=== PATIENT | female | born 1965 | race African-American/Black ===

== ENCOUNTER 2017-03-30 23:26 | Emergency (ER) | payer MEDICAID ==
[~2017-03-30] VITALS: Ht 160 cm; Wt 87.5 kg
[2017-03-30] MEDS ORDERED: IBUPROFEN 600 MG TAB PO ONE (23:45)
[2017-03-31 00:11] LABS: Basophils # (auto) 0 uL; Basophils % (auto) 0.4 % (0.0-2.0); DEFINITIVE SEE PRINTOUT; Eosinophils # (auto) 0 uL; Eosinophils % (auto) 0.5 % (0.0-7.0); Hematocrit 39.4 % (36.0-46.0); Hemoglobin 12.6 g/dL (12.2-16.2); Lymphocytes # (auto) 1.8 uL; Lymphocytes % (auto) 27.9 % (10.0-50.0); Mean Corpuscular Hemoglobin 26.1 pg (28.0-32.0); Mean Corpuscular Hgb Conc. 31.9 g/dL (32.0-36.0); Mean Corpuscular Volume 81.8 fL (80.0-100.0); Mean Platelet Volume 10.1 fL (7.4-10.4); Monocytes # (auto) 0.7 uL; Monocytes % (auto) 10.8 % (0.0-12.0); Neutrophils # (auto) 3.8 uL; Neutrophils % (auto) 60.4 % (37.0-80.0); Platelet Count (auto) 257 10^3/uL (140-450); Red Cell Distribution Width 14.5 % (11.6-16.0); White Blood Cell 6.3 10^3/uL (4.4-10.8)
[2017-03-31 00:12] LABS: Urine Bilirubin Negative (Negative); Urine Blood TRACE /uL (Negative); Urine Color Yellow (Yellow); Urine Glucose Normal (Normal); Urine Ketone Negative (Negative); Urine Mucus FEW (None Seen); Urine Nitrite Negative (Negative); Urine RBC 1 /hpf (0 - 4); Urine Squamous Epithelial Cell FEW /hpf (<5); Urine Urobilinogen Normal (Negative)
[2017-03-31 00:14] LABS: Albumin 3.3 g/dL (3.4-5.0); Amylase 45 U/L (25-115); Anion Gap 9 (5-15); Aspartate Aminotransferase 21 U/L (15-37); BUN/Creatinine Ratio 10.2; Blood Urea Nitrogen 11 mg/dL (7-18); Calcium 8.4 mg/dL (8.5-10.1); Carbon Dioxide 23 mmol/L (21-32); Chloride 104 mmol/L (98-107); GFR African American 68 mL/min; GFR Non-African American 56 mL/min; Glucose 110 mg/dL (74-106); Potassium 3.9 mmol/L (3.5-5.1); Sodium 136 mmol/L (136-145)
[2017-03-31 00:19] LABS: Alkaline Phosphatase 89 U/L (45-117); Bilirubin, Total 0.4 mg/dL (0.2-1.0); Total Protein 7.3 g/dL (6.4-8.2)
[2017-03-31 01:06] LABS: INR 1.12 (0.9-1.15); Partial Thromboplastin Time 29.7 sec (22.64-33.71); Prothrombin Time 12.2 sec (9.37-12.3)
[2017-03-31 01:27] VITALS: BP 107/55
[2017-03-31] MEDS ORDERED: diphenhdrAMINE HCL 50 MG/1 ML VL IV ONE (01:45)
[2017-03-31] MEDS ORDERED: SODIUM CHLORIDE 0.9% 1,000 ML IV ONE (01:45)
[2017-03-31] MEDS ORDERED: methylPREDNISolone SOD SUCC 125 MG/2 ML VL IV ONE (01:45)
[2017-03-31] MEDS ORDERED: EPINEPHrine HCL 1 MG/1 ML AMP SC ONE (01:45)
[2017-03-31] MEDS ORDERED: FAMOTIDINE (10MG/ML) 2ML VL IV ONE (02:45)
== END 2017-03-31 04:29 | disposition home or self-care (01) ==
LOC: ER 23:26
DX: T78.40XA Allergy, unspecified, initial encounter (principal); T78.3XXA Angioneurotic edema, initial encounter; J45.909 Unspecified asthma, uncomplicated; Y92.89 Other specified places as the place of occurrence of the external cause
CPT/HCPCS: 36415; 71010; 80053; 80320; 81001; 81025; 82150; 83605; 83690; 83735; 84484; 85025; 85610; 85730; 93005; 96361; 96372; 96374; 96375; 99285; J0171; J1200; J2930; J3490; J7030

== ENCOUNTER 2017-06-28 15:17 | Emergency (ER) | payer MEDICAID ==
[~2017-06-28] VITALS: Ht 160 cm; Wt 96.2 kg
[2017-06-28 16:12] VITALS: BP 137/46
[2017-06-28] MEDS ORDERED: methylPREDNISolone SOD SUCC 125 MG/2 ML VL IM ONE (16:30)
[2017-06-28] MEDS ORDERED: EPINEPHrine HCL 1 MG/1 ML AMP SC ONE (16:30)
[2017-06-28] MEDS ORDERED: diphenhdrAMINE HCL 50 MG/1 ML VL IM ONE (16:30)
== END 2017-06-28 17:33 | disposition home or self-care (01) ==
LOC: ER 15:17
DX: L50.9 Urticaria, unspecified (principal); J45.909 Unspecified asthma, uncomplicated; Z88.6 Allergy status to analgesic agent
CPT/HCPCS: 96372; 99284; J0171; J1200; J2930

== ENCOUNTER 2018-08-11 14:20 | Emergency (ER) | payer MEDICAID ==
[~2018-08-11] VITALS: Ht 160 cm; Wt 97.5 kg
[2018-08-11 14:46] LABS: Basophils # (auto) 0 uL; Basophils % (auto) 0.5 % (0.0-2.0); Eosinophils # (auto) 0.2 uL; Eosinophils % (auto) 2.9 % (0.0-7.0); Hematocrit 39.4 % (36.0-46.0); Hemoglobin 12.6 g/dL (12.2-16.2); Lymphocytes # (auto) 2.1 uL; Lymphocytes % (auto) 39.8 % (10.0-50.0); Mean Corpuscular Hemoglobin 27.4 pg (28.0-32.0); Mean Corpuscular Volume 85.5 fL (80.0-100.0); Monocytes # (auto) 0.4 uL; Neutrophils # (auto) 2.6 uL; Neutrophils % (auto) 49.8 % (37.0-80.0); Nucleated Red Blood Cells % 0.3 %; Platelet Count (auto) 282 10^3/uL (140-450); Red Blood Cells 4.61 10^6/uL (4.0-5.20); Red Cell Distribution Width 14.2 % (11.8-14.3); White Blood Cell 5.3 10^3/uL (4.4-10.8)
[2018-08-11 15:06] LABS: Albumin 3.5 g/dL (3.4-5.0); BUN/Creatinine Ratio 14.5; Calcium 8.5 mg/dL (8.5-10.1); Potassium 3.8 mmol/L (3.5-5.1)
[2018-08-11 15:08] LABS: Bilirubin, Total 0.3 mg/dL (0.2-1.0); Total Protein 7.3 g/dL (6.4-8.2)
[2018-08-11] MEDS ORDERED: methylPREDNISolone SOD SUCC 125 MG/2 ML VL IV ONE (15:30)
[2018-08-11 16:20] LABS: Urine Bacteria NONE SEEN /hpf (None Seen); Urine Blood Negative /uL (Negative); Urine Specific Gravity 1.015 (1.001-1.035); Urine WBC <1 /hpf (0 - 5)
[2018-08-11 17:03] VITALS: BP 137/93
== END 2018-08-11 18:33 | disposition home or self-care (01) ==
LOC: ER 14:24
DX: M79.89 Other specified soft tissue disorders (principal); R22.0 Localized swelling, mass and lump, head; J45.909 Unspecified asthma, uncomplicated; Z88.6 Allergy status to analgesic agent
CPT/HCPCS: 36415; 80053; 81001; 83880; 85025; 96374; 99283; J2930